=== PATIENT | female | born 1960 | race Two or more races ===

== ENCOUNTER 2017-12-21 13:34 | Emergency (ER) | payer OTHER ==
[~2017-12-21] VITALS: Ht 157.5 cm; Wt 63.5 kg
== END 2017-12-21 16:33 | disposition home or self-care (01) ==
LOC: ER 13:34
DX: S01.81XA Laceration without foreign body of other part of head, initial encounter (principal); W18.39XA Other fall on same level, initial encounter; Y93.89 Activity, other specified; Y92.098 Other place in other non-institutional residence as the place of occurrence of the external cause; Y99.8 Other external cause status

== ENCOUNTER 2018-10-11 12:53 | Outpatient (CLI) | payer OTHER | END 2018-10-11 13:04 | disposition home or self-care (01) | LOC: EKG 12:53 | DX: R94.31 Abnormal electrocardiogram [ECG] [EKG] (principal) ==

== ENCOUNTER → 2020-01-12 | Emergency (ER) | payer OTHER ==
[~2020-01-12] VITALS: Ht 157.5 cm; Wt 68.0 kg
== END | disposition home or self-care (01) ==
LOC: ER 13:48 → CPU-OBS 15:17 → ER 15:17
DX: G89.11 Acute pain due to trauma (principal); R07.89 Other chest pain
CPT/HCPCS: G0378; G0379; 93005

== ENCOUNTER 2023-02-16 11:14 | Emergency (ER) | payer OTHER ==
[~2023-02-16] VITALS: Ht 157.5 cm; Wt 68.0 kg
[2023-02-16] MEDS ORDERED: DICLOFENAC SODI75 MG PO (14:25)
== END 2023-02-16 14:32 | disposition home or self-care (01) ==
LOC: ER 11:14
DX: S22.42XA Multiple fractures of ribs, left side, initial encounter for closed fracture (principal); Z88.2 Allergy status to sulfonamides; W07.XXXA Fall from chair, initial encounter; Y93.89 Activity, other specified; Y92.018 Other place in single-family (private) house as the place of occurrence of the external cause

== ENCOUNTER 2025-03-31 15:19 | Emergency (ER) | payer OTHER ==
[~2025-03-31] VITALS: Ht 157.5 cm; Wt 72.6 kg
[~2025-03-31 15:19] MED LIST: DICLOFENAC SODI75 MG PO
== END 2025-03-31 22:35 | disposition home or self-care (01) ==
LOC: ER 15:19
DX: S92.351A Displaced fracture of fifth metatarsal bone, right foot, initial encounter for closed fracture (principal); S99.811A Other specified injuries of right ankle, initial encounter; X50.1XXA Overexertion from prolonged static or awkward postures, initial encounter; Y93.89 Activity, other specified; Y92.89 Other specified places as the place of occurrence of the external cause; Z88.2 Allergy status to sulfonamides

== ENCOUNTER 2025-06-20 10:54 | Outpatient (CLI) | payer OTHER | END 2025-06-20 11:02 | disposition home or self-care (01) | LOC: RAD 10:54 | PROVIDERS: ATTEND Orthopaedic Surgery | DX: S92.351A Displaced fracture of fifth metatarsal bone, right foot, initial encounter for closed fracture (principal) ==